=== PATIENT | female | born 1950 ===

== ENCOUNTER 2017-01-14 10:06 | Day surgery (SDC) | payer MEDICAID ==
[2017-01-14 10:44] VITALS: BMI 28.3
[2017-01-14] MEDS ORDERED: Lactated Ringer's 500 ML IV ONE (13:12)
[2017-01-14 13:34] VITALS: O2SAT 100
[2017-01-14 15:05] VITALS: TEMP 98
[2017-01-14 15:12] VITALS: BP 119/66; PULSE 66; RESP 16
== END 2017-01-14 15:05 | disposition home or self-care (01) ==
LOC: C.ENDO 10:06
PROVIDERS: ATTEND Internal Medicine Gastroenterology
DX: Z12.11 Encounter for screening for malignant neoplasm of colon (principal); D12.5 Benign neoplasm of sigmoid colon; K62.1 Rectal polyp; K64.8 Other hemorrhoids; K21.0 Gastro-esophageal reflux disease with esophagitis; K29.50 Unspecified chronic gastritis without bleeding; K31.89 Other diseases of stomach and duodenum; E11.9 Type 2 diabetes mellitus without complications; I10 Essential (primary) hypertension; E78.5 Hyperlipidemia, unspecified; M17.11 Unilateral primary osteoarthritis, right knee; Z98.890 Other specified postprocedural states; Z79.84 Long term (current) use of oral hypoglycemic drugs; Z79.82 Long term (current) use of aspirin; Z79.1 Long term (current) use of non-steroidal anti-inflammatories (NSAID); Z79.899 Other long term (current) drug therapy; Z88.0 Allergy status to penicillin
CPT/HCPCS: 43239; 45380; 82948; 88305; J7120

== ENCOUNTER 2017-03-12 09:02 | Day surgery (SDC) | payer MEDICAID ==
[2017-03-12 09:26] VITALS: BMI 28.7
[2017-03-12 09:43] VITALS: TEMP 97.8; O2SAT 100
[2017-03-12] MEDS ORDERED: Lactated Ringer's 500 ML IV ONE ×2 (11:14)
[2017-03-12 12:41] VITALS: BP 127/63; PULSE 66; RESP 18
== END 2017-03-12 12:29 | disposition home or self-care (01) ==
LOC: C.ENDO 09:02
PROVIDERS: ATTEND Internal Medicine Gastroenterology
DX: Z12.11 Encounter for screening for malignant neoplasm of colon (principal); K21.9 Gastro-esophageal reflux disease without esophagitis; K63.5 Polyp of colon
CPT/HCPCS: 45378; 82948; J7120

== ENCOUNTER 2017-03-25 09:57 | Day surgery (SDC) | payer MEDICARE, MEDICAID ==
[2017-03-13 07:41] VITALS: BMI 28.7
[2017-03-25] MEDS ORDERED: Clindamycin 600mg/50ml D5W 600 MG/50 ML VIAL IVPB SCH (12:15)
[2017-03-25] MEDS ORDERED: Lidocaine 1% Inj (20ml) ONE (12:22)
[2017-03-25] MEDS ORDERED: Bupivacaine-Epi 0.5%-1:200,000 PF Inj ONE (12:22)
[2017-03-25] MEDS ORDERED: Lactated Ringer's 1,000 ML IV ONE (12:38)
[2017-03-25] MEDS ORDERED: Bupivacaine HCl 0.5% PF (10 ml) Inj ONE (13:16)
[2017-03-25] MEDS ORDERED: Dexamethasone 4 mg/1 ml ONE (13:19)
[2017-03-25] MEDS ORDERED: Oxycodone/Acetaminophen 5/325 mg Tab PO PRN ×2 (13:40)
[2017-03-25] MEDS ORDERED: HYDROmorphone 0.5 mg/0.5 ml ISec IVP PRN (13:46)
[2017-03-25] MEDS ORDERED: Lactated Ringer's 1,000 ML IV SCH (14:00)
--- NOTE | 2017-03-25 15:06 | PCM.SURG1 ---
Surgeon's Initial Post Op Note - Surgeon's Notes Surgeon: Dr. Beal Component Prep Operator: Dr. Ochoa Type of Anesthesia: IV Sedation, Local Pre-Operative Diagnosis: Left ankle soft tissue mass Operative Findings: see dictation. I: 10ml 1:1 1% lidocaine plain, 0.5% marcaine with epinepherine; 10ml 0.5% marcaine plain; 2ml dexamethasone. M: 4- 0 vicryl, 4-0 prolene. Post-Operative Diagnosis: Left ankle ganglion cyst Operation Performed: Left ankle excision of ganglion cyst Specimen/Specimens Removed: Left ankle ganglion cyst Estimated Blood Loss: EBL {In ML}: 1 Blood Products Given: N/A Drains Used: No Drains Post-Op Condition: Good Date of Surgery/Procedure: 03/25/17 Time of Surgery/Procedure: 15:06
[2017-03-25 15:31] VITALS: RESP 14; TEMP 97.9; O2SAT 98
[2017-03-25 16:50] VITALS: BP 122/67; PULSE 73
--- NOTE | 2017-03-27 12:05 | OP ---
PROCEDURE DATE: 03/25/2017 PREOPERATIVE DIAGNOSIS: Left ankle soft tissue mass. POSTOPERATIVE DIAGNOSIS: Left ankle ganglion cyst. PROCEDURE PERFORMED: Left ankle excision of ganglion cyst. SURGEON: Dr. Ada Beal. CLINICAL RN LIAISON: Dr. Mitchell Ochoa. ANESTHESIA: IV sedation and local injection. INDICATIONS: This patient is a 66-year-old female with the aforementioned diagnosis. The patient is being treated by Dr. Beal in the [facility] on an outpatient basis where she has exhau sted multiple forms of conservative treatment options. The patient desires surgical intervention at this time. All alternatives, benefits, complications and risks of surgical procedure were explained to the patient at length. The patient verbalized understanding and wished to proceed. All questions were addressed and answered. No guarantees were given nor implied. The patient signed the consent and n.p.o. status was confirmed prior to bringing the patient to the operating room. OPERATIVE PROCEDURE: The patient was brought into the operating room and placed on the operating derrick m table in supine position. After induction of IV sedation, a local injection consisting of 10 mL of a 1:1 mixture of 1% lidocaine plain and 0.5% Marcaine with epinephrine was administered in a local b lock fashion to the left ankle. Once local anesthesia was achieved, the foot was then prepped and dr aped in the normal sterile manner and the procedure began. PROCEDURE: Left ankle excision of ganglion cyst. Attention was directed to the anterior aspect of the lateral left ankle where a palpable ganglion cys t was noted. Utilizing a 15 blade, a linear longitudinal incision was made overlying this area. The incision was deepened through the superficial and subcutaneous tissue utilizing sharp and blunt diss ection. Care was taken to retract all vital neurovascular structures throughout the duration of the procedure. At this time, it was noted that there was a prominent ganglion cyst extending deep throug h the superficial extensor retinaculum in between the long extensor tendons stemming from the lateral aspect of the ankle joint. Utilizing pickups and dissecting scissors, care was taken to dissect the cyst free from any soft tissue attachments. The cyst was traced down and the stem was found against ____ in the lateral gutter of the ankle joint. Upon rupturing the cyst, it was noted that there was a clear ____ fluid. The fluid was sent from the surgical field to the back table to be sent to path ology. Again, dissecting scissors and pickups were utilized to dissect the cyst free of any remainin g soft tissue attachments and to transect the stalk at the deepest level of the joint. The cyst was then passed from the surgical field to the back table to be sent to pathology. At this time, the are a was inspected and it is noted that all visible portions of the cyst had been adequately excised. T he surgical area was then flushed with copious amounts of sterile normal saline. Next, the subcutane ous tissues were reapproximated utilizing 4-0 Vicryl suture. The skin was then reapproximated utiliz ing 4-0 Prolene suture. Intraoperative injections consisted of 2 mL of dexamethasone and 10 mL of 0. 5% Marcaine plain. The dexamethasone was ensured to be injected into the lateral aspect of the ankle joint where the cyst originated from. Postoperative dressings consisted of a saline-soaked gauze, D ROGER, Jai and Coban. POSTOPERATIVE CONDITION: The patient tolerated the procedure and anesthesia well with no apparent co mplications or complaints. The patient was escorted from the OR to the recovery room with vital sign s stable and neurovascular status intact. The patient will follow up with Dr. Beal in the [facility] on an outpatient basis. Mitchell Ochoa DPM Ada Beal DPM cc: [id number] TT: 03/27/2017 12:05:09 zeina
== END 2017-03-25 15:55 | disposition home or self-care (01) ==
LOC: C.SDS 09:57
PROVIDERS: ATTEND Podiatrist Foot & Ankle Surgery
DX: M67.472 Ganglion, left ankle and foot (principal)
CPT/HCPCS: 27630; 82948; 88305; J1100; J7120